=== PATIENT | male | born 1945 | race Caucasian/White ===

== ENCOUNTER → 2017-11-26 | Outpatient (CLI) | payer MEDICARE, OTHER ==
[~2017-11-26] MED LIST: ASPI81EC PO; Aspirin EC81 MG PO; CHERRY JUICE PO; HYDACE5325 PO; HYDCHL12.5 PO; HYDCHL25 PO; MULVITMIND PO; Multiple Vitam1 EAC1 PO; NAPR220 PO; POTA10T PO; QUIN10 PO; Quinapril HCl20 MG PO
== END | disposition home or self-care (01) ==
LOC: LAB SHORT 13:40
DX: N39.0 Urinary tract infection, site not specified (principal)
CPT/HCPCS: 87086

== ENCOUNTER → 2020-11-14 | Outpatient (CLI) | payer MEDICARE, OTHER ==
[~2020-11-14] MED LIST changes: +ALLO300 PO; +AMLO5 PO; +Crestor20 MG PO; +Isosorbide Mono30 MG PO
[2020-11-14 12:47] LABS: Source, Urine Clean Catch
[2020-11-14 13:05] LABS: Bacteria Rare /hpf; Red Blood Cells, Urine TNTC /hpf (0-2); Renal Epithelial Few /hpf (0-Rare); Squamous Epithelial Cells Not Seen /hpf (Few); White Blood Cells, Urine 50-100 /hpf (0-5)
== END ==
LOC: LAB SHORT 12:36
PROVIDERS: Physician Assistant
DX: R30.9 Painful micturition, unspecified (principal)
CPT/HCPCS: 81015; 87077; 87086; 87186

== ENCOUNTER → 2020-12-20 | Outpatient (CLI) | payer MEDICARE, OTHER | END | disposition home or self-care (01) | LOC: PLD 11:21 → LAB SHORT 11:21 | DX: D48.5 Neoplasm of uncertain behavior of skin (principal) | CPT/HCPCS: 88305 ==

== ENCOUNTER 2021-11-27 07:53 | Day surgery (SDC) | payer MEDICARE, OTHER ==
[~2021-11-27] VITALS: Ht 182.9 cm; Wt 97.2 kg
--- NOTE | 2021-11-27 08:28 | NUR ---
11/27/21 0828 Padmini Fox TETRACAINE DROP TO RIGHT EYE AT 0812 PLEDGET TO RIGHT EYE AT 0814 BY [facility].JOSEG
== END 2021-11-27 10:16 | disposition home or self-care (01) ==
LOC: ORSCSDS 07:53
PROVIDERS: Ophthalmology
PROC: 08RJ3JZ Replacement of Right Lens with Synthetic Substitute, Percutaneous Approach (ICD-10-PCS; principal; 2021-11-27 09:00)
DX: H25.12 Age-related nuclear cataract, left eye (principal); H21.81 Floppy iris syndrome; I10 Essential (primary) hypertension; E78.5 Hyperlipidemia, unspecified; I25.10 Atherosclerotic heart disease of native coronary artery without angina pectoris; Z79.899 Other long term (current) drug therapy; G47.33 Obstructive sleep apnea (adult) (pediatric); Z79.82 Long term (current) use of aspirin
CPT/HCPCS: A9270; J2001; J2250; J3010; J3301; J7040; V2632

== ENCOUNTER 2021-12-18 08:05 | Day surgery (SDC) | payer MEDICARE, OTHER ==
[~2021-12-18] VITALS: Ht 182.9 cm; Wt 97.4 kg
--- NOTE | 2021-12-18 08:45 | NUR ---
12/18/21 0845 MARISEL WETZEL IN L @ 0845.END NOTE ORSC.RDS
== END 2021-12-18 10:45 | disposition home or self-care (01) ==
LOC: ORSCSDS 08:05
PROVIDERS: Ophthalmology
PROC: 08RK3JZ Replacement of Left Lens with Synthetic Substitute, Percutaneous Approach (ICD-10-PCS; principal; 2021-12-18 09:30)
DX: H25.12 Age-related nuclear cataract, left eye (principal); I10 Essential (primary) hypertension; Z79.82 Long term (current) use of aspirin; Z79.899 Other long term (current) drug therapy
CPT/HCPCS: J2001; J2250; J3010; J3301; J7040; V2632

== ENCOUNTER → 2022-09-23 | Outpatient (CLI) | payer MEDICARE, OTHER | LOC: LAB SHORT 08:08 → PLD 08:08 | DX: D36.17 Benign neoplasm of peripheral nerves and autonomic nervous system of trunk, unspecified (principal); L57.0 Actinic keratosis; D36.12 Benign neoplasm of peripheral nerves and autonomic nervous system, upper limb, including shoulder | CPT/HCPCS: 88305 ==

== ENCOUNTER → 2022-12-17 | Outpatient (CLI) | payer MEDICARE, OTHER ==
[2022-12-17 11:07] LABS: BASOPHILS ABSOLUTE AUTO 0.05 K/mm3 (0.00-0.23); BASOPHILS PERCENT AUTO 1 % (0-2); EOSINOPHILS ABSOLUTE AUTO 0.08 K/mm3 (0.00-0.68); EOSINOPHILS PERCENT AUTO 1 % (0-6); Hematocrit 43.8 % (37.0-53.0); Hemoglobin 15.1 g/dL (13.5-17.5); IMMATURE GRAN ABSOLUTE AUTO 0.02 K/mm3 (0.00-0.10); IMMATURE GRAN PERCENT AUTO 0 % (0-1); LYMPHOCYTES ABSOLUTE AUTO 1.02 K/mm3 (0.84-5.20); LYMPHOCYTES PERCENT AUTO 13 % (21-46); MONOCYTES ABSOLUTE AUTO 0.68 K/mm3 (0.16-1.47); MONOCYTES PERCENT AUTO 9 % (4-13); Mean Corpuscular HGB 32.2 pg (26.0-34.0); Mean Corpuscular HGB Conc 34.5 g/dL (31.5-36.5); Mean Corpuscular Volume 93 fL (80-100); Mean Platelet Volume 9.7 fL (9.1-12.4); NEUTROPHILS ABSOLUTE AUTO 5.78 K/mm3 (1.96-9.15); NEUTROPHILS PERCENT AUTO 76 % (41-73); Platelet Count 186 K/mm3 (150-400); RDW Coefficient Variation 12.8 % (11.7-14.2); Red Blood Cell Count 4.69 M/mm3 (4.30-5.90); White Blood Cell Count 7.63 K/mm3 (4.00-11.30)
[2022-12-17 11:18] LABS: Albumin, Blood 4.1 g/dL (3.4-5.0); Albumin/Globulin Ratio 1.2 (0.8-1.8); Bilirubin, Total 0.6 mg/dL (0.1-1.0); Bun/Creatinine Ratio 9.8 (12.0-20.0); Calcium, Blood 10.2 mg/dL (8.5-10.1); Creatinine, Blood 1.33 mg/dL (0.60-1.20); Globulin, Blood 3.3 g/dL (2.2-4.0); Potassium, Blood 4.4 mmol/L (3.5-5.5); Total Protein, Blood 7.4 g/dL (6.4-8.2)
== END | disposition home or self-care (01) ==
LOC: LAB SHORT 11:02
PROVIDERS: Physician Assistant
DX: R10.9 Unspecified abdominal pain (principal)
CPT/HCPCS: 80053; 85025

== ENCOUNTER 2023-02-02 08:45 | Day surgery (SDC) | payer MEDICARE, OTHER ==
[~2023-02-02] VITALS: Ht 185.4 cm; Wt 97.0 kg
[~2023-02-02 08:45] MED LIST changes: +METO25ER PO; +NITR.4SL SL; +TAMS.4ER PO; +ZESTRIL40 M2 PO
[2023-02-02 09:14] LABS: BASOPHILS ABSOLUTE AUTO 0.05 K/mm3 (0.00-0.23); BASOPHILS PERCENT AUTO 1 % (0-2); EOSINOPHILS ABSOLUTE AUTO 0.19 K/mm3 (0.00-0.68); EOSINOPHILS PERCENT AUTO 4 % (0-6); Hematocrit 44.2 % (37.0-53.0); Hemoglobin 15.1 g/dL (13.5-17.5); IMMATURE GRAN ABSOLUTE AUTO 0.01 K/mm3 (0.00-0.10); IMMATURE GRAN PERCENT AUTO 0 % (0-1); LYMPHOCYTES ABSOLUTE AUTO 1.36 K/mm3 (0.84-5.20); LYMPHOCYTES PERCENT AUTO 26 % (21-46); MONOCYTES ABSOLUTE AUTO 0.91 K/mm3 (0.16-1.47); MONOCYTES PERCENT AUTO 18 % (4-13); Mean Corpuscular HGB 31.6 pg (26.0-34.0); Mean Corpuscular HGB Conc 34.2 g/dL (31.5-36.5); Mean Corpuscular Volume 93 fL (80-100); Mean Platelet Volume 9.9 fL (9.1-12.4); NEUTROPHILS ABSOLUTE AUTO 2.67 K/mm3 (1.96-9.15); NEUTROPHILS PERCENT AUTO 51 % (41-73); Platelet Count 147 K/mm3 (150-400); RDW Coefficient Variation 12.2 % (11.7-14.2); RDW Standard Deviation 41.4 fL (35.1-46.3); Red Blood Cell Count 4.78 M/mm3 (4.30-5.90); White Blood Cell Count 5.19 K/mm3 (4.00-11.30)
[2023-02-02 09:26] LABS: International Normalized Ratio 1.06; Prothrombin Time Results 11.1 Sec (9.7-11.5)
[2023-02-02 09:28] LABS: Bun/Creatinine Ratio 12.3 (12.0-20.0); Calcium, Blood 9.7 mg/dL (8.5-10.1); Creatinine, Blood 1.14 mg/dL (0.60-1.20); Potassium, Blood 3.9 mmol/L (3.5-5.5)
--- NOTE | 2023-02-02 11:43 | NUR ---
STARTED DEFLATING TR BAND. PT TOLERATES WELL. VSS. TEMPLETON. FRIEND AT BEDSIDE. CALL LIGHT WITHIN REACH.
--- NOTE | 2023-02-02 12:40 | NUR ---
PT VERBALIZES UNDERSTANDING [place] INSTRUCTIONS. NO QUESTIONS OR CONCERNS. PT R RADIAL REMAINS CLEAR NO BLEEDING NOTED. VSS. NADN. CALL LIGHT WITHIN REACH
--- NOTE | 2023-02-02 13:00 | NUR ---
PT TR BAND REMOVED. NO BLEEDING OR HEMATOMA NOTED. VSS.NADN. CLOTH DOT APPLIED W/ SPLINT. TOLERATES WELL. VSS. NADN. PT IV DC'D. CATH INTACT. PRESSURE DSG APPLIED. PT DC TO HOME VIA FRIEND WITH WC.
== END 2023-02-02 13:01 | disposition home or self-care (01) ==
LOC: MHTC 08:45
PROVIDERS: Internal Medicine Cardiovascular Disease
DX: I25.10 Atherosclerotic heart disease of native coronary artery without angina pectoris (principal); I10 Essential (primary) hypertension; I95.1 Orthostatic hypotension; G47.31 Primary central sleep apnea; R00.1 Bradycardia, unspecified; Z79.899 Other long term (current) drug therapy
CPT/HCPCS: 76937; 80048; 85025; 85610; 93454; 99152; A9270; C1769; C1887; C1894; J1644; J2250; J3010; J7030; J7050; Q9967

== ENCOUNTER → 2023-07-03 | Outpatient (CLI) | payer MEDICARE, OTHER ==
[2023-07-03 14:55] LABS: BASOPHILS ABSOLUTE AUTO 0.05 K/mm3 (0.00-0.23); BASOPHILS PERCENT AUTO 1 % (0-2); EOSINOPHILS ABSOLUTE AUTO 0.13 K/mm3 (0.00-0.68); EOSINOPHILS PERCENT AUTO 2 % (0-6); Hematocrit 39.4 % (37.0-53.0); Hemoglobin 13.7 g/dL (13.5-17.5); IMMATURE GRAN ABSOLUTE AUTO 0.02 K/mm3 (0.00-0.10); IMMATURE GRAN PERCENT AUTO 0 % (0-1); LYMPHOCYTES ABSOLUTE AUTO 1.31 K/mm3 (0.84-5.20); LYMPHOCYTES PERCENT AUTO 20 % (21-46); MONOCYTES ABSOLUTE AUTO 0.64 K/mm3 (0.16-1.47); MONOCYTES PERCENT AUTO 10 % (4-13); Mean Corpuscular HGB 32.4 pg (26.0-34.0); Mean Corpuscular HGB Conc 34.8 g/dL (31.5-36.5); Mean Corpuscular Volume 93 fL (80-100); NEUTROPHILS ABSOLUTE AUTO 4.56 K/mm3 (1.96-9.15); NEUTROPHILS PERCENT AUTO 68 % (41-73); Platelet Count 156 K/mm3 (150-400); RDW Coefficient Variation 12.5 % (11.7-14.2); RDW Standard Deviation 42.9 fL (35.1-46.3); Red Blood Cell Count 4.23 M/mm3 (4.30-5.90); White Blood Cell Count 6.71 K/mm3 (4.00-11.30)
[2023-07-03 15:05] LABS: Albumin, Blood 3.6 g/dL (3.4-5.0); Albumin/Globulin Ratio 1.1 (0.8-1.8); Bilirubin, Total 0.3 mg/dL (0.1-1.0); Bun/Creatinine Ratio 13.2 (12.0-20.0); Calcium, Blood 9.3 mg/dL (8.5-10.1); Creatinine, Blood 1.14 mg/dL (0.60-1.20); Globulin, Blood 3.4 g/dL (2.2-4.0); Potassium, Blood 4.1 mmol/L (3.5-5.5)
== END | disposition home or self-care (01) ==
LOC: LAB SHORT 14:50 → LAB 14:50
PROVIDERS: Chiropractor
DX: R10.32 Left lower quadrant pain (principal)
CPT/HCPCS: 80053; 85025

== ENCOUNTER 2024-08-01 06:10 | Day surgery (SDC) | payer MEDICARE, OTHER ==
[~2024-08-01] VITALS: Ht 183 cm; Wt 96.6 kg
[2024-08-01] VITALS (16 sets, daily range): BP systolic 104–160; BP diastolic 49–77
[~2024-08-01 06:10] MED LIST changes: +CHLO25B PO
[2024-08-01] MEDS ORDERED: Acetaminophen 500 MG Tab PO SCH ×2 (06:20→16:00)
[2024-08-01] MEDS ORDERED: Lactated Ringer's 1,000 ML IV SCH ×2 (06:20→10:00)
[2024-08-01] MEDS ORDERED: CeFAZolin Sodium 2,000 MG in NS 100 ML IV SCH ×2 (06:20→16:00)
[2024-08-01] MEDS ORDERED: Ropivacaine 0.5% HCl/Pf 123.125 MG,EPINEPHrine HCL 0.25 MG,Ketorolac Tromethamine 15 MG... INFIL SCH (06:20)
[2024-08-01] MEDS ORDERED: Chlorhexidine Mouth Care 15 ML UDC MT SCH (06:20)
[2024-08-01] MEDS ORDERED: OxyCODONE HCL 10 MG TABCR PO SCH (06:20)
[2024-08-01] MEDS ORDERED: Tranexamic Acid 100 ML IV SCH (06:20)
[2024-08-01] MEDS ORDERED: propofoL 60 ML IV ONE (06:59)
[2024-08-01] MEDS ORDERED: FentaNYL Citrate 50 MCG/ML 2 ML Injection ONE (06:59)
[2024-08-01] MEDS ORDERED: Ondansetron HCl 2 MG / ML 2ML Vial ONE (07:00)
[2024-08-01] MEDS ORDERED: Dexamethasone Sod Phos 10 MG/ML 1ML VIAL ONE (07:00)
[2024-08-01] MEDS ORDERED: Phenylephrine HCl 100 MCG/ML-NS 10MLSYR (1MG/10ML) ONE (07:00)
[2024-08-01] MEDS ORDERED: ePHEDrine Sulfate 50 MG/ML 1ML Injection ONE (07:44)
--- NOTE | 2024-08-01 08:16 | NUR ---
08/01/24 0816 Lexus Rossi SPINAL BLOCK COMPLETED BY UPON ENTRY TO OR. PATIENT TOLERATED WELL. SMALL SCAB NOTED ON PATIENTS RIGHT LOWER LEG. AWARE.
[2024-08-01] MEDS ORDERED: Magnesium Hydroxide Conc 10 ML UDC PO PRN (09:55)
[2024-08-01] MEDS ORDERED: Metoclopramide HCl 5MG / ML 2ML Vial IV PRN (09:55)
[2024-08-01] MEDS ORDERED: FLU VACC TS2024-25(6MOS UP)/PF 45 MCG/0.5 ML SYRINGE IM ONE (10:00)
[2024-08-01] MEDS ORDERED: Bisacodyl 10 MG Supp PR PRN (10:00)
[2024-08-01] MEDS ORDERED: DiphenhydrAMINE HCL 25 MG Cap PO PRN (10:00)
[2024-08-01] MEDS ORDERED: HYDROmorphone HCl/Pf 1MG SYR IV PRN (10:00)
[2024-08-01] MEDS ORDERED: Ondansetron HCl 2 MG / ML 2ML Vial IV PRN (10:05)
[2024-08-01] MEDS ORDERED: OxyCODONE HCL 5 MG TAB PO PRN ×2 (10:05)
[2024-08-01] MEDS ORDERED: Promethazine HCl 25 MG Tab PO PRN (10:05)
[2024-08-01] MEDS ORDERED: Ketorolac Tromethamine 15mg Vial IV SCH (12:00)
--- NOTE | 2024-08-01 19:15 | NUR ---
SHIFT SUMMARY PT HAS DONE WELL POST OP. SPINAL WORE OFF & WAS ABLE TO WORK w/ THERAPY. VOIDED x 2. PAIN WELL CONTROLLED. PLEASANT & COOPERATIVE.
[2024-08-01] MEDS ORDERED: Docusate Sodium 100 MG Cap PO SCH (21:00)
--- NOTE | 2024-08-02 04:14 | NUR ---
SHIFT SUMMARY POD 1 R TKA. NO ACUTE CHANGES OVERNIGHT. VSS, HOME CPAP c CONT BIOX OVERNIGHT. TOLERATING ORALS. VOIDING IND. AMB FWW c SBA. PT REPORTS PAIN TOLERABLE, MEDICATED PER EMAR. ANTICIPATED DISCHARGE LATER TODAY. CALL LIGHT IN REACH, BED IN LOWEST POSITION, WILL REPORT TO DAY RN.
[2024-08-02 04:40] LABS: BASOPHILS ABSOLUTE AUTO 0.02 K/mm3 (0.00-0.23); BASOPHILS PERCENT AUTO 0 % (0-2); EOSINOPHILS PERCENT AUTO 0 % (0-6); Hematocrit 34.7 % (37.0-53.0); Hemoglobin 12.3 g/dL (13.5-17.5); IMMATURE GRAN ABSOLUTE AUTO 0.03 K/mm3 (0.00-0.10); IMMATURE GRAN PERCENT AUTO 0 % (0-1); LYMPHOCYTES ABSOLUTE AUTO 0.64 K/mm3 (0.84-5.20); LYMPHOCYTES PERCENT AUTO 5 % (21-46); MONOCYTES ABSOLUTE AUTO 0.59 K/mm3 (0.16-1.47); MONOCYTES PERCENT AUTO 5 % (4-13); Mean Corpuscular HGB 32.2 pg (26.0-34.0); Mean Corpuscular HGB Conc 35.4 g/dL (31.5-36.5); Mean Corpuscular Volume 91 fL (80-100); Mean Platelet Volume 9.7 fL (9.1-12.4); NEUTROPHILS ABSOLUTE AUTO 11.56 K/mm3 (1.96-9.15); NEUTROPHILS PERCENT AUTO 90 % (41-73); Platelet Count 142 K/mm3 (150-400); RDW Coefficient Variation 12.7 % (11.7-14.2); Red Blood Cell Count 3.82 M/mm3 (4.30-5.90); White Blood Cell Count 12.84 K/mm3 (4.00-11.30)
[2024-08-02 04:56] LABS: Bun/Creatinine Ratio 17.9 (12.0-20.0); Calcium, Blood 9.1 mg/dL (8.5-10.1); Creatinine, Blood 1.4 mg/dL (0.60-1.20); Magnesium, Blood 1.8 mg/dL (1.6-2.4); Potassium, Blood 4.1 mmol/L (3.5-5.5)
[2024-08-02 05:06] VITALS: BP 153/63
[2024-08-02 07:17] VITALS: BP 153/57
[2024-08-02] MEDS ORDERED: ACET500 PO (07:33)
[2024-08-02] MEDS ORDERED: OXAYDO5 M1 PO (07:45)
[2024-08-02] MEDS ORDERED: Aspirin 81 MG Chew PO SCH (09:00)
[2024-08-02] MEDS ORDERED: HydroCHLOROthiazide 25 mg Tab PO SCH (09:00)
--- NOTE | 2024-08-02 10:07 | NUR ---
DISCHARGE PATIENT PASSES THERAPY, TOLERATES PAIN MEDICATIONS, VOIDING. PAIN MANAGED WELL. DISCHARGE INSTRUCTIONS READ AND SIGNED. PACKET WITH PATIENT BELONGINGS. IV TAKEN OUT W/O COMPLICATIONS. LEAVES VIA PRIVATE VEHICLE.
== END 2024-08-02 10:15 | disposition home or self-care (01) ==
LOC: ORSCMMR 06:10 → ORD 07:30 → ORSCMMR 07:30 → SURS 09:45 → ORSCMMR 08-02 10:15 → SURS 08-02 10:15 → ORD 09-12 10:15
PROVIDERS: Orthopaedic Surgery
PROC: 0SRC0JA Replacement of Right Knee Joint with Synthetic Substitute, Uncemented, Open Approach (ICD-10-PCS; principal; 2024-08-01 07:30)
DX: M17.11 Unilateral primary osteoarthritis, right knee (principal); I25.10 Atherosclerotic heart disease of native coronary artery without angina pectoris; G47.33 Obstructive sleep apnea (adult) (pediatric); E78.5 Hyperlipidemia, unspecified; I10 Essential (primary) hypertension; Z79.899 Other long term (current) drug therapy; Z87.891 Personal history of nicotine dependence; Z79.82 Long term (current) use of aspirin
CPT/HCPCS: 27447; 0055T; 36415; 73560-RT; 80048; 83735; 85025; 94762; 97110; 97116; 97161; 97530; A9270; C1713; C1776; J0171; J0690; J0735; J1100; J1885; J2371; J2405; J2704; J2795; J3010; J7120

== ENCOUNTER 2024-08-21 16:55 | Emergency (ER) | payer MEDICARE, OTHER ==
[~2024-08-21] VITALS: Ht 182.9 cm; Wt 90.7 kg
[2024-08-21 17:28] VITALS: BP 123/52
[2024-08-21 18:33] LABS: BASOPHILS ABSOLUTE AUTO 0.04 K/mm3 (0.00-0.23); BASOPHILS PERCENT AUTO 1 % (0-2); EOSINOPHILS ABSOLUTE AUTO 0.23 K/mm3 (0.00-0.68); EOSINOPHILS PERCENT AUTO 4 % (0-6); Hemoglobin 11.6 g/dL (13.5-17.5); IMMATURE GRAN ABSOLUTE AUTO 0.02 K/mm3 (0.00-0.10); IMMATURE GRAN PERCENT AUTO 0 % (0-1); LYMPHOCYTES ABSOLUTE AUTO 1.49 K/mm3 (0.84-5.20); LYMPHOCYTES PERCENT AUTO 23 % (21-46); MONOCYTES ABSOLUTE AUTO 0.74 K/mm3 (0.16-1.47); MONOCYTES PERCENT AUTO 12 % (4-13); Mean Corpuscular HGB 32.8 pg (26.0-34.0); Mean Corpuscular HGB Conc 35.2 g/dL (31.5-36.5); Mean Corpuscular Volume 93 fL (80-100); Mean Platelet Volume 9.8 fL (9.1-12.4); NEUTROPHILS ABSOLUTE AUTO 3.85 K/mm3 (1.96-9.15); NEUTROPHILS PERCENT AUTO 61 % (41-73); Platelet Count 254 K/mm3 (150-400); RDW Coefficient Variation 12.2 % (11.7-14.2); RDW Standard Deviation 42.5 fL (35.1-46.3); Red Blood Cell Count 3.54 M/mm3 (4.30-5.90); White Blood Cell Count 6.37 K/mm3 (4.00-11.30)
[2024-08-21 19:02] LABS: Bun/Creatinine Ratio 28.9 (12.0-20.0); Calcium, Blood 9.4 mg/dL (8.5-10.1); Creatinine, Blood 1.28 mg/dL (0.60-1.20); Potassium, Blood 3.6 mmol/L (3.5-5.5)
[2024-08-21] MEDS ORDERED: NS 500 ML IV SCH (20:10)
== END 2024-08-21 20:40 | disposition home or self-care (01) ==
LOC: ER 16:55
PROVIDERS: Physician Assistant
DX: R42 Dizziness and giddiness (principal); R06.02 Shortness of breath; I10 Essential (primary) hypertension; Z96.651 Presence of right artificial knee joint; Z79.82 Long term (current) use of aspirin; Z79.899 Other long term (current) drug therapy; Z87.891 Personal history of nicotine dependence; I95.89 Other hypotension; R79.89 Other specified abnormal findings of blood chemistry; R91.1 Solitary pulmonary nodule; I25.10 Atherosclerotic heart disease of native coronary artery without angina pectoris; N28.1 Cyst of kidney, acquired
CPT/HCPCS: 71046; 71260; 80048; 80053; 84484; 85025; 85379; 93005; 93010; 99284-25; J7030; Q9967

== ENCOUNTER → 2024-08-21 | Outpatient (CLI) | payer MEDICARE, OTHER ==
[~2024-08-21] MED LIST changes: +ACET500 PO; +OXAYDO5 M1 PO
[2024-08-21 13:29] LABS: BASOPHILS ABSOLUTE AUTO 0.04 K/mm3 (0.00-0.23); BASOPHILS PERCENT AUTO 1 % (0-2); EOSINOPHILS ABSOLUTE AUTO 0.29 K/mm3 (0.00-0.68); EOSINOPHILS PERCENT AUTO 4 % (0-6); Hemoglobin 11.7 g/dL (13.5-17.5); IMMATURE GRAN ABSOLUTE AUTO 0.02 K/mm3 (0.00-0.10); IMMATURE GRAN PERCENT AUTO 0 % (0-1); LYMPHOCYTES ABSOLUTE AUTO 1.63 K/mm3 (0.84-5.20); LYMPHOCYTES PERCENT AUTO 22 % (21-46); MONOCYTES ABSOLUTE AUTO 1.14 K/mm3 (0.16-1.47); MONOCYTES PERCENT AUTO 15 % (4-13); Mean Corpuscular HGB 32.2 pg (26.0-34.0); Mean Corpuscular HGB Conc 34.4 g/dL (31.5-36.5); Mean Corpuscular Volume 94 fL (80-100); Mean Platelet Volume 9.6 fL (9.1-12.4); NEUTROPHILS ABSOLUTE AUTO 4.47 K/mm3 (1.96-9.15); NEUTROPHILS PERCENT AUTO 59 % (41-73); Platelet Count 261 K/mm3 (150-400); RDW Coefficient Variation 12.4 % (11.7-14.2); RDW Standard Deviation 42.5 fL (35.1-46.3); Red Blood Cell Count 3.63 M/mm3 (4.30-5.90); White Blood Cell Count 7.59 K/mm3 (4.00-11.30)
[2024-08-21 13:44] LABS: Albumin, Blood 3.4 g/dL (3.4-5.0); Albumin/Globulin Ratio 0.9 (0.8-1.8); Bilirubin, Total 0.4 mg/dL (0.1-1.0); Bun/Creatinine Ratio 24.1 (12.0-20.0); Calcium, Blood 9.8 mg/dL (8.5-10.1); Creatinine, Blood 1.62 mg/dL (0.60-1.20); Globulin, Blood 3.8 g/dL (2.2-4.0); Potassium, Blood 3.7 mmol/L (3.5-5.5); Total Protein, Blood 7.2 g/dL (6.4-8.2)
== END ==
LOC: LAB SHORT 13:24 → LAB 13:24
PROVIDERS: Physician Assistant Surgical
DX: I95.89 Other hypotension (principal)
CPT/HCPCS: 80053; 84484; 85025; 85379

== ENCOUNTER → 2025-08-28 | Outpatient (CLI) | payer MEDICARE, OTHER ==
[2025-08-28 12:49] LABS: BASOPHILS ABSOLUTE AUTO 0.03 K/mm3 (0.00-0.23); BASOPHILS PERCENT AUTO 1 % (0-2); EOSINOPHILS ABSOLUTE AUTO 0.15 K/mm3 (0.00-0.68); EOSINOPHILS PERCENT AUTO 3 % (0-6); Hematocrit 37.9 % (37.0-53.0); Hemoglobin 13.0 g/dL (13.5-17.5); IMMATURE GRAN ABSOLUTE AUTO 0.01 K/mm3 (0.00-0.10); IMMATURE GRAN PERCENT AUTO 0 % (0-1); LYMPHOCYTES ABSOLUTE AUTO 1.32 K/mm3 (0.84-5.20); LYMPHOCYTES PERCENT AUTO 23 % (21-46); MONOCYTES ABSOLUTE AUTO 0.67 K/mm3 (0.16-1.47); MONOCYTES PERCENT AUTO 12 % (4-13); Mean Corpuscular HGB Conc 34.3 g/dL (31.5-36.5); Mean Corpuscular Volume 94 fL (80-100); NEUTROPHILS ABSOLUTE AUTO 3.50 K/mm3 (1.96-9.15); NEUTROPHILS PERCENT AUTO 62 % (41-73); NRBC ABSOLUTE 0.00 K/mm3 (0.00-0.02); NRBC Auto 0.0 /100 WBC (0.0-0.2); Platelet Count 151 K/mm3 (150-400); RDW Coefficient Variation 12.8 % (11.7-14.2); RDW Standard Deviation 44.3 fL (35.1-46.3)
[2025-08-28 13:00] LABS: Alanine Aminotransfer (ALT/SGP 28.0 U/L (12-78); Albumin, Blood 3.7 g/dL (3.4-5.0); Albumin/Globulin Ratio 1.1 (0.8-1.8); Anion Gap 15.0 mmol/L (3-11); Aspartate Aminotrans (AST/SGOT 24.0 U/L (12-37); Bilirubin, Total 0.4 mg/dL (0.1-1.0); Blood Urea Nitrogen 32.0 mg/dL (8-24); CO2, Blood 27.0 mmol/L (21-32); Calcium, Blood 9.5 mg/dL (8.5-10.1); Chloride, Blood 106.0 mmol/L (98-108); Creatinine, Blood 1.35 mg/dL (0.60-1.20); Globulin, Blood 3.4 g/dL (2.2-4.0); Glucose, Blood 113.0 mg/dL (70-99); Potassium, Blood 4.2 mmol/L (3.5-5.5); Sodium, Blood 144.0 mmol/L (136-145); Total Protein, Blood 7.1 g/dL (6.4-8.2)
== END ==
LOC: LAB 12:44 → LAB SHORT 12:44
PROVIDERS: Physician Assistant
DX: R10.9 Unspecified abdominal pain (principal)
CPT/HCPCS: 80053; 83690; 85025